=== PATIENT | male | born 1995 | race Caucasian/White ===

== ENCOUNTER 2018-12-23 11:09 | Day surgery (SDC) | payer OTHER ==
[~2018-12-23] VITALS: Ht 175.3 cm; Wt 62.3 kg
[2018-12-23 11:46] VITALS: BP 122/72
== END 2018-12-23 17:40 | disposition home or self-care (01) ==
LOC: OUT 11:09
PROVIDERS: ATTEND Surgery
DX: K40.90 Unilateral inguinal hernia, without obstruction or gangrene, not specified as recurrent (principal); F17.210 Nicotine dependence, cigarettes, uncomplicated; Z72.89 Other problems related to lifestyle
CPT/HCPCS: 49650; C1727; C1781; J0690; J1100; J2175; J2250; J2405; J2704; J3010; J7120; J0171

== ENCOUNTER 2021-01-16 15:20 | Emergency (ER) | payer OTHER, MEDICAID ==
[~2021-01-16] VITALS: Ht 175.3 cm; Wt 61.9 kg
[~2021-01-16 15:20] MED LIST: None at this Time
--- NOTE | 2021-01-16 18:00 | NUR ---
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
[2021-01-16 18:26] VITALS: BP 126/82
[2021-01-16 18:37] LABS: MICROSCOPIC NOT IND
--- NOTE | 2021-01-16 19:41 | NUR ---
Patient/Caregiver given discharge instructions and they have confirmed that they understand the instructions. Patient ambulatory with steady gait. NAD, all questions answered appropriately, denies additional needs at this time. No personal belongings left in room after discharge.
== END 2021-01-16 19:43 | disposition home or self-care (01) ==
LOC: ED 19:35
DX: S39.011A Strain of muscle, fascia and tendon of abdomen, initial encounter (principal); X58.XXXA Exposure to other specified factors, initial encounter; Y93.89 Activity, other specified; Y92.89 Other specified places as the place of occurrence of the external cause; Y99.8 Other external cause status
CPT/HCPCS: 76870; 81003; 99284